=== PATIENT | female | born 1990 | race Two or more races ===

== ENCOUNTER 2019-04-20 08:56 | Emergency (ER) | payer MEDICAID ==
[~2019-04-20] VITALS: Ht 165.1 cm; Wt 93.0 kg
[~2019-04-20 08:56] MED LIST: PREN-145 OR
[2019-04-20 09:56] LABS: Basophils # (auto) 0 uL; Basophils % (auto) 0.5 % (0.0-2.0); Eosinophils # (auto) 0.2 uL; Eosinophils % (auto) 2.5 % (0.0-7.0); Hematocrit 43.2 % (36.0-46.0); Hemoglobin 14.6 g/dL (12.2-16.2); Lymphocytes # (auto) 2.4 uL; Lymphocytes % (auto) 33.8 % (10.0-50.0); Mean Corpuscular Hemoglobin 28.1 pg (28.0-32.0); Mean Corpuscular Hgb Conc. 33.7 g/dL (32.0-36.0); Mean Corpuscular Volume 83.4 fL (80.0-100.0); Monocytes # (auto) 0.4 uL; Neutrophils % (auto) 57.2 % (37.0-80.0); Platelet Count (auto) 271 10^3/uL (140-450); Red Blood Cells 5.18 10^6/uL (4.0-5.20); Red Cell Distribution Width 14.6 % (11.8-14.3)
[2019-04-20 10:13] LABS: BUN/Creatinine Ratio 21.9; Calcium 8.8 mg/dL (8.5-10.1); Potassium 4.1 mmol/L (3.5-5.1)
[2019-04-20 10:16] LABS: Bilirubin, Total 0.8 mg/dL (0.2-1.0); Total Protein 7.9 g/dL (6.4-8.2)
[2019-04-20] MEDS ORDERED: ONDANSETRON HCL 4 MG/2 ML VIAL IV ONE (10:45)
[2019-04-20] MEDS ORDERED: MORPHINE SULF INJ 2 MG/ML SYRINGE 1ML IV ONE (10:45)
[2019-04-20] MEDS ORDERED: SODIUM CHLORIDE 0.9% 1,000 ML IV ONE (10:45)
[2019-04-20 11:07] LABS: Urine Bacteria FEW /hpf (None Seen); Urine Blood TRACE /uL (Negative); Urine Mucus FEW (None Seen); Urine Specific Gravity 1.024 (1.001-1.035); Urine WBC 37 /hpf (0 - 5)
[2019-04-20 12:13] VITALS: BP 116/62
[2019-04-20] MEDS ORDERED: cefTRIAXone 1GM/50ML D5W 50 ML IV ONE (12:15)
== END 2019-04-20 12:43 | disposition home or self-care (01) ==
LOC: ER 08:56
DX: N39.0 Urinary tract infection, site not specified (principal); N20.0 Calculus of kidney; R11.2 Nausea with vomiting, unspecified
CPT/HCPCS: 36415; 74176; 80053; 81001; 85025; 96361; 96365; 96375; 99284; J0696; J2270; J2405; J7030